=== PATIENT | female | born 1995 | race Caucasian/White ===

== ENCOUNTER 2022-01-17 22:43 | Inpatient (IN) | payer OTHER ==
[2022-01-17 23:07] VITALS: BMI 32.8
[2022-01-17] MEDS ORDERED: hydrALAZINE 20 MG/ML VIAL SLOW IVP PRN (23:42)
[2022-01-17] MEDS ORDERED: Lidocaine 1% (PF) 30 ML VIAL SC PRN (23:42)
[2022-01-17] MEDS ORDERED: Ondansetron PF 4 MG/2 ML Vial IVP PRN (23:42)
[2022-01-17] MEDS ORDERED: HYDROcodone/Acetaminophen 5/325 mg Tablet PO PRN (23:42)
[2022-01-17] MEDS ORDERED: Promethazine HCl 25 MG/ML VIAL IM PRN (23:42)
[2022-01-17] MEDS ORDERED: Lactated Ringer's 1,000 ML IV SCH ×2 (23:45)
[2022-01-17] MEDS ORDERED: NS w/ Oxytocin 30 units 500 ML IV SCH (23:45)
[2022-01-18] LABS: Hemoglobin 13.5 g/dL (12.0-15.5); Mean Corpuscular HGB CONC 35.1 g/dL (32.0-36.0); Mean Corpuscular Hemoglobin 30.5 pg (27.0-33.0); Mean Corpuscular Volume 87.1 fl (81.6-98.3); Mean Platelet Volume 9.7 fl (7.4-10.4); Platelet Count 254 10x3/uL (150-450); RBC Distribution Width 13.4 % (11.5-14.5); Red Blood Cell (RBC) Count 4.42 10x6/uL (3.90-5.03)
[2022-01-18 00:26] LABS: HBSAg Index 0.19 S/CO (0-0.99); Hep B Surf Ag Non-Reactive S/CO (NonReactive); Syphilis Antibody Nonreactive (Nonreactive); Syphilis Antibody Index 0.04 S/CO (<1.00 Non-Reactive)
[2022-01-18 00:29] LABS: SARS-CoV-2 NAA Rapid Test Not Detected (NotDetected)
[2022-01-18] MEDS ORDERED: Lidocaine 1% (PF) 30 ML VIAL ONE (02:03)
[2022-01-18] MEDS ORDERED: Erythromycin Base 0.5% Oint 1 GM TUBE ONE (02:48)
[2022-01-18] MEDS ORDERED: Phytonadione Neonatal 1 MG/0.5 ML AMP ONE (02:48)
[2022-01-18] MEDS ORDERED: Hepatitis B Vaccine 10 MCG/0.5 ML SYR ONE (02:49)
[2022-01-18] MEDS ORDERED: hydrALAZINE 20 MG/ML VIAL SLOW IVP PRN (09:57)
[2022-01-18] MEDS ORDERED: Milk Of Magnesia 30 ML UDCUP PO PRN (09:57)
[2022-01-18] MEDS ORDERED: HYDROcodone/Acetaminophen 5/325 mg Tablet PO PRN ×2 (09:57)
[2022-01-18] MEDS ORDERED: Lanolin Ointment 7 GM TUBE TOP PRN (09:57)
[2022-01-18] MEDS ORDERED: Bisacodyl 10 MG SUPP PR PRN (09:57)
[2022-01-18] MEDS ORDERED: Misoprostol 200 MCG TAB VAG PRN (09:57)
[2022-01-18] MEDS ORDERED: Boostrix 0.5 ML (Tdap) VIAL (>/=7 yrs of age) IM ONE (09:57)
[2022-01-18] MEDS ORDERED: Benzocaine-Menthol 82.5 ML CAN TOP PRN (09:57)
[2022-01-18] MEDS ORDERED: NS w/ Oxytocin 30 units 500 ML IV SCH (09:57)
[2022-01-18] MEDS ORDERED: Docusate 100 MG CAP PO SCH (11:00)
[2022-01-18] MEDS ORDERED: Ferrous Sulfate 325 MG TAB PO SCH (11:00)
[2022-01-18] MEDS ORDERED: Prenatal Vitamin 1 TAB PO SCH (11:00)
[2022-01-18] MEDS: Ibuprofen 800 MG TAB PO PRN ×2 (11:31→17:27)
[2022-01-18] MEDS: Ferrous Sulfate 325 MG TAB PO SCH (15:25)
[2022-01-18] MEDS ORDERED: Witch Hazel-Glycerin 1 EACH JAR TOP PRN (20:44)
[2022-01-18] MEDS: Docusate 100 MG CAP PO SCH (21:17)
[2022-01-19] MEDS: Ibuprofen 800 MG TAB PO PRN ×2 (02:47→12:11)
[2022-01-19] MEDS: Docusate 100 MG CAP PO SCH (08:41)
[2022-01-19] MEDS: Ferrous Sulfate 325 MG TAB PO SCH (08:42)
[2022-01-19] MEDS ORDERED: Prenatal Vitamin 1 TAB PO SCH (09:00)
[2022-01-19 12:38] VITALS: BP 133/86; TEMP 98.2
== END 2022-01-19 13:30 | disposition home or self-care (01) | DRG 806 ==
LOC: CSHLD/OP 22:43 → CSHLD 23:43 → UNDOADMIN 01-18 00:24 → CSHLD 01-18 00:24 → CSHPED 01-18 10:40
PROVIDERS: ADMIT Obstetrics & Gynecology; ATTEND Obstetrics & Gynecology
PROC: 10E0XZZ Delivery of Products of Conception, External Approach (ICD-10-PCS; principal; 2022-01-18)
PROC: 0KQM0ZZ Repair Perineum Muscle, Open Approach (ICD-10-PCS; 2022-01-18)
DX: O42.02 Full-term premature rupture of membranes, onset of labor within 24 hours of rupture (principal); K50.90 Crohn's disease, unspecified, without complications; Z37.0 Single live birth; O70.1 Second degree perineal laceration during delivery; Z3A.40 40 weeks gestation of pregnancy; Z20.822 Contact with and (suspected) exposure to COVID-19; J45.909 Unspecified asthma, uncomplicated; O99.62 Diseases of the digestive system complicating childbirth; O99.52 Diseases of the respiratory system complicating childbirth; M41.9 Scoliosis, unspecified; O99.892 Other specified diseases and conditions complicating childbirth; Z79.899 Other long term (current) drug therapy; Z90.49 Acquired absence of other specified parts of digestive tract; Z88.8 Allergy status to other drugs, medicaments and biological substances; Z91.040 Latex allergy status; Z88.2 Allergy status to sulfonamides
CPT/HCPCS: 85027; 86780; 86850; 86900; 86901; 87340; 99285; J2590; U0002